=== PATIENT | female | born 2000 | race Caucasian/White ===

== ENCOUNTER 2019-01-30 17:32 | Emergency (ER) | payer OTHER ==
[2019-01-30] MEDS ORDERED: Ketorolac Tromethamine 60 MG/2 ML VIAL ONE (17:51)
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
== END 2019-01-30 18:28 | disposition home or self-care (01) ==
LOC: SCSER 17:32
DX: S16.1XXA Strain of muscle, fascia and tendon at neck level, initial encounter (principal); V79.9XXA Bus occupant (driver) (passenger) injured in unspecified traffic accident, initial encounter
CPT/HCPCS: 70450; 96372; J1885